=== PATIENT | female | born 1960 | race Caucasian/White ===

== ENCOUNTER → 2021-06-10 | Day surgery (SDC) | payer OTHER, SELFPAY ==
[~2021-06-10] MED LIST: ARMOUR THYROID60 MG PO; BUPIVACAINE HCL 0.5% 10ML MPF VIAL INJ ONE; ESTROGEN TOP; FENTANYL CITRATE/PF 100MCG/2 ML INJ ONE; LEVOTHYROXINE50 MCG PO; LIDOCAINE HCL 1% LOCAL INJ 20 ML VIAL ONE; LIDOCAINE HCL 2% LOCAL INJ 5 ML SDV VIAL INJ ONE; METHYLPREDNISOLONE ACETATE 80 MG/ML VIAL ONE; ONDANSETRON HCL INJ 2MG/ML 2ML 2 MG/ML VIAL ONE; POVIDONE IODINE 0.05% 0.05 % ML PO ONE; PROPOFOL IV EMULSION 10 MG/ML 20 ML VIAL ONE
[2021-06-10 07:25] VITALS: BP 125/74
== END | disposition home or self-care (01) ==
LOC: OR 06:07
PROVIDERS: ATTEND Orthopaedic Surgery
DX: M94.252 Chondromalacia, left hip (principal); M16.12 Unilateral primary osteoarthritis, left hip; M94.251 Chondromalacia, right hip; E03.9 Hypothyroidism, unspecified; Z88.4 Allergy status to anesthetic agent; Z01.810 Encounter for preprocedural cardiovascular examination; Z01.812 Encounter for preprocedural laboratory examination; Z20.822 Contact with and (suspected) exposure to COVID-19; Z79.899 Other long term (current) drug therapy; Z79.890 Hormone replacement therapy; Z68.34 Body mass index [BMI] 34.0-34.9, adult
CPT/HCPCS: 20610; 77002; 93005; J1040; J2001 ×2; J2405; J2704; J3010; U0002